=== PATIENT | male | born 1990 | race Caucasian/White ===

== ENCOUNTER 2017-10-31 13:25 | Emergency (ER) | payer OTHER ==
[~2017-10-31] VITALS: Ht 177.8 cm; Wt 74.8 kg
--- NOTE | 2017-10-31 14:52 | Emergency Room Report ---
History of Present Illness General Chief Complaint: Lower Extremity Injury Source: Patient Present Illness HPI 27-year-old male presents emergency department complaining of 7-8 out of 10 in severity localized pain to the lateral left foot 6 days. Patient states acute onset while playing basketball. Patient describes an inversion injury of the left ankle. Patient states he has been icing and elevating his leg he has had bruising which seems to be improving however patient states that his swelling has not resolved and he continues to have pain. Patient states that he did attempt to go to the gym yesterday which severely agitated his swelling and pain. Patient states that he has not been evaluated for his injuries that occurred. He states pain is exacerbated upon walking or weightbearing he denies previous injury to this extremity. Denies numbness tingling or loss of sensation or gross motor movements of the extremities, incontinence of bowel or bladder. Denies CP, Palpitations, LOC, AMS, dizziness, Changes in Vision, weakness or a sudden severe headache. Allergies: Coded Allergies: No Known Allergies (Unverified , 10/31/17) Patient History Past Medical History: see triage record Past Surgical History: none Pertinent Family History: none Reviewed Nursing Documentation: PMH: Agreed; PSxH: Agreed Nursing Documentation-PMH Past Medical History: No Stated History Review of Systems All Other Systems: negative except mentioned in HPI Physical Exam Vital Signs Date Time Temp Pulse Resp B/P (MAP) Pulse Ox O2 Delivery O2 Flow Rate FiO2 10/31/17 13:28 98.1 71 18 105/49 96 Room Air 98.1 Sp02 EP Interpretation: reviewed, normal General Appearance: no apparent distress, alert, GCS 15, non-toxic Head: normocephalic, atraumatic ENT: hearing grossly normal, normal voice Neck: full range of motion Respiratory: lungs clear, normal breath sounds, speaking full sentences Cardiovascular #1: regular rate, rhythm, no edema, normal capillary refill Genitourinary: normal inspection Musculoskeletal: back normal, gait/station normal, normal range of motion, tender - TTP to the lateral left foot and ankle, swelling and bruising noted, some mild medial swelling, ttp, FROM with pain. no obvious deformity or laxity noted. Neurologic: alert, oriented x3, responsive, motor strength/tone normal, sensory intact, speech normal, grossly normal Psychiatric: judgement/insight normal Skin: no rash, warm/dry, well hydrated, other - bruising noted to lateral left foot and ankle. Medical Decision Making KANNAN Attestation Dr. Lowe is my supervising Physician whom patient management has been discussed with. Diagnostic Impression: Primary Impression: Left ankle sprain Qualified Codes: S93.402A - Sprain of unspecified ligament of left ankle, initial encounter ER Course 27-year-old male presents emergency department complaining of 7-8 out of 10 in severity localized pain to the lateral left foot 6 days. Patient states acute onset while playing basketball. Patient describes an inversion injury of the left ankle. Patient states he has been icing and elevating his leg he has had bruising which seems to be improving however patient states that his swelling has not resolved and he continues to have pain. Patient states that he did attempt to go to the gym yesterday which severely agitated his swelling and pain. Patient states that he has not been evaluated for his injuries that occurred. He states pain is exacerbated upon walking or weightbearing he denies previous injury to this extremity. Denies numbness tingling or loss of sensation or gross motor movements of the extremities, incontinence of bowel or bladder. Denies CP, Palpitations, LOC, AMS, dizziness, Changes in Vision, weakness or a sudden severe headache. Ddx considered but are not limited to Fracture, dislocation, contusion, Sprain/ Strain/Spasm, Vital signs: are WNL, pt. is afebrile H&PE are most consistent with musculoskeletal injury will perform imaging to r/ o fractures/dislocations. ORDERS: - X-ray Left Foot and Ankle 3 views each - negative for fx, Dislocation, or significant soft tissue injury, per preliminary read in ED, and signed by KANNAN Rosario, my supervising physician has reviewed, and agrees with my interpretation. ED INTERVENTIONS: -Motrin PO Conrad wrap applied by pathology technologist. Pt. remains neurovascularly intact. -Patient is provided with crutches and instructed on their use d/w pt. conservative treatment, and to follow up with a primary care provider. pt given a list of primary care clinics for follow up. d/w pt. to return to the ED with worsening or new symptoms. DISCHARGE: At this time pt. is stable for d/c to home. Will provide printed patient care instructions, and any necessary prescriptions. Care plan and follow up instructions have been discussed with the patient prior to discharge. Other X-Ray Diagnostic Results Other X-Ray Diagnostic Results #1: X-Ray ordered: Left ankle # of Views/Limited Vs Complete: 3 View Indication: Pain EP Interpretation: Yes KANNAN Xray: Interpretation reviewed, by supervising MD, and agrees with findings. Interpretation: no dislocation, no fractures, other - moderate soft tissue swelling noted. Impression: Other - abnormal: ST swelling Electronically Signed by: Jaja Rosario PA-C Other X-Ray Diagnostic Results #2: X-Ray ordered: Left Foot # of Views/Limited Vs Complete: 3 View Indication: Pain EP Interpretation: Yes KANNAN Xray: Interpretation reviewed, by supervising MD, and agrees with findings. Interpretation: no dislocation, no fractures, other - moderate soft tissue swelling noted. Impression: Other - abnormal: ST Swelling Electronically Signed by: Jaja Rosario PA-C Last Vital Signs Date Time Temp Pulse Resp B/P (MAP) Pulse Ox O2 Delivery O2 Flow Rate FiO2 10/31/17 14:23 98.1 10/31/17 13:28 71 18 105/49 96 Room Air Disposition: HOME, SELF-CARE Condition: Stable Scripts Ibuprofen* (MOTRIN*) 600 Mg Tablet 600 MG ORAL THREE TIMES A DAY, #20 TAB 0 Refills Prov: Jaja Rosario 10/31/17 Referrals: SYLVIA CRUZ,REFERRING (PCP) Patient Instructions: Ankle Sprain Additional Instructions: Take medications as directed. Rest, Ice, Elevation, use crutches/ no strenuous activities, up to two weeks if symptoms have not resolved further imaging may be required. Follow up with a Primary Care Provider in 3-5 days, for orthopedic referral as needed. even if your symptoms have resolved. --Please review list of primary care clinics, if you do not already have a primary care provider Return sooner to ED if new symptoms occur, or current symptoms become worse. - Please note that this Emergency Department Report was dictated using [employer] director technology software, occasionally this can lead to erroneous entry secondary to interpretation by the dictation equipment. Jaja Rosario Oct 31, 2017 14:52
[2017-10-31] MEDS ORDERED: IBUPROFEN600 MG ORAL (14:53)
[2017-10-31 15:05] VITALS: BP 107/53
--- NOTE | 2017-10-31 17:29 | Diagnostic Imaging Report ---
Indication: Pain, trauma Technique: 3 views of the left ankle Comparison: none Findings: There is soft tissue swelling over the lateral malleolus. No acute fractures. No dislocations. The joint spaces are preserved Impression: Evidence of lateral soft tissue or ligamentous injury. No acute bony trauma
--- NOTE | 2017-10-31 17:31 | Diagnostic Imaging Report ---
Indication: Pain, swelling, sports injury Technique: 3 views left foot Comparison: none Findings: No acute fractures. No dislocations. The joint spaces are preserved Impression: Negative
== END 2017-10-31 15:11 | disposition home or self-care (01) ==
LOC: EMR 13:59
DX: S93.402A Sprain of unspecified ligament of left ankle, initial encounter (principal); X58.XXXA Exposure to other specified factors, initial encounter; Y93.67 Activity, basketball; Y92.9 Unspecified place or not applicable
CPT/HCPCS: 99284

== ENCOUNTER 2018-06-12 01:56 | Emergency (ER) | payer OTHER ==
[~2018-06-12] VITALS: Ht 177.8 cm; Wt 70.3 kg
[~2018-06-12 01:56] MED LIST: IBUPROFEN600 MG ORAL
[2018-06-12 02:10] VITALS: BP 125/86
--- NOTE | 2018-06-12 02:10 | NUR ---
ER Nurse Note: Pt came from home c/o difficulty swallowing since "this morning". Pt stated he took three pills and felt it was stuck in his neck; stated he has difficulty swallowing anything afterwards. Pt a&ox4, VSS, O2 98%RA, no signs of distress; able to communicate without difficulty. Provided pt with water; tolerated well. No coughing, n/v, aspiration. ERMD at pt side[facility]
--- NOTE | 2018-06-12 02:30 | Emergency Room Report ---
History of Present Illness General Chief Complaint: General Complaint Source: Patient Present Illness HPI Is a 28-year-old male with no past medical history. He does have a history of drug abuse and will go to rehabilitation tomorrow with his friend. He presents with chief complaint of decreased swallowing. Onset was 45 minutes ago. He took 2 oxycodone pills and afterward felt like he couldn't swallow. [place] like his throat was dry. He is not drooling. No rest or issue. No chest tightness. Denies any other complaint. Allergies: Coded Allergies: No Known Allergies (Unverified , 10/31/17) Patient History Past Medical History: see triage record, old chart reviewed Past Surgical History: none Pertinent Family History: none Social History: Reports: drug use; Denies: smoking Immunizations: other Reviewed Nursing Documentation: PMH: Agreed; PSxH: Agreed Review of Systems Eye: Denies: eye pain, blurred vision ENT: Denies: ear pain, nose congestion, throat swelling Respiratory: Denies: cough, shortness of breath Cardiovascular: Denies: chest pain, palpitations Gastrointestinal: Denies: abdominal pain, diarrhea, nausea, vomiting Musculoskeletal: Denies: back pain, joint pain Skin: Denies: rash Neurological: Denies: headache, numbness Endocrine: Denies: increased thirst, increased urine Hematologic/Lymphatic: Denies: easy bruising All Other Systems: negative except mentioned in HPI Physical Exam Vital Signs Date Time Temp Pulse Resp B/P (MAP) Pulse Ox O2 Delivery O2 Flow Rate FiO2 06/12/18 02:00 98.4 98 18 125/86 98 Room Air vitals normal Sp02 EP Interpretation: reviewed, normal General Appearance: well appearing, no apparent distress, alert Head: normocephalic, atraumatic Eyes: bilateral eye PERRL, bilateral eye EOMI ENT: hearing grossly normal, normal pharynx Neck: full range of motion, supple, no meningismus Respiratory: chest non-tender, lungs clear, normal breath sounds Cardiovascular #1: regular rate, rhythm, no murmur Gastrointestinal: normal bowel sounds, non tender, no mass, no organomegaly, no bruit, non-distended Musculoskeletal: back normal, gait/station normal, normal range of motion Psychiatric: mood/affect normal Skin: warm/dry Medical Decision Making Diagnostic Impression: Primary Impression: Globus sensation ER Course Patient with difficulty swallowing. He drinks several cups of water here without any problem. He said he felt better. Suspect may be anxiety. We'll discharge home. Last Vital Signs Date Time Temp Pulse Resp B/P (MAP) Pulse Ox O2 Delivery O2 Flow Rate FiO2 06/12/18 02:00 98.4 98 18 125/86 98 Room Air Status: improved Disposition: HOME, SELF-CARE Condition: Stable Referrals: SYLVIA CRUZ,REFERRING (PCP) Additional Instructions: Keep your appointment with rehabilitation tomorrow. Return if symptom worsen. Subhash Cates MD Jun 12, 2018 02:30
[2018-06-12 02:38] VITALS: BP 126/77
--- NOTE | 2018-06-12 02:38 | NUR ---
ER Nurse Note: Pt seen, treated, medically cleared by ERMD for discharge. Discharge instructions given with repeat verbailzation by pt. Instructed pt to follow up with primary care physican within one week. Pt a&ox4, VSS, no signs of distress. ID band removed. Pt left with all belongings via own transportation with steady gait.
== END 2018-06-12 02:38 | disposition home or self-care (01) ==
LOC: EMR 02:11
DX: F45.8 Other somatoform disorders (principal); R13.10 Dysphagia, unspecified; F19.10 Other psychoactive substance abuse, uncomplicated
CPT/HCPCS: 99282